=== PATIENT | male | born 1990 | race African-American/Black ===

== ENCOUNTER 2022-05-27 08:32 | Emergency (ER) | payer OTHER ==
[~2022-05-27] VITALS: Ht 167.6 cm; Wt 71.7 kg
[2022-05-27] MEDS ORDERED: NS 1,000 ML IV ONE (10:55)
[2022-05-27] MEDS ORDERED: ONDANSETRON 4MG 2ML VIAL IV ONE (11:00)
[2022-05-27 11:28] LABS: BASO % 0.6 % (0.0-1.0); EOS % 0.6 % (0.0-3.0); HEMATOCRIT 39.2 % (42.0-52.0); HEMOGLOBIN 13.1 g/dl (13.5-17.5); LYMPH # 2.1 10^3/uL (1.5-5.0); LYMPH % 38.2 % (24.0-44.0); MEAN CORPUSCULAR HEMOGLOBIN 29.2 pg (27.0-33.0); MEAN CORPUSCULAR HGB CONC 33.4 g/dl (32.0-36.5); MEAN CORPUSCULAR VOLUME 87.5 fl (80.0-96.0); MONO # 0.3 10^3/uL (0.0-0.8); MONO % 6.3 % (2.0-8.0); NEUTROPHILS % 54.1 % (36.0-66.0); PLATELET COUNT, AUTOMATED 260 10^3/uL (150-450); RED BLOOD COUNT 4.48 10^6/uL (4.30-6.10); WHITE BLOOD COUNT 5.4 10^3/uL (4.0-10.0)
[2022-05-27 12:08] LABS: ALT/SGPT 32 U/L (12-78); BILIRUBIN,DIRECT 0.1 MG/DL (0.0-0.2); BILIRUBIN,TOTAL 0.7 MG/DL (0.2-1.0); BLOOD UREA NITROGEN 15 MG/DL (7-18); CALCIUM LEVEL 9.4 MG/DL (8.5-10.1); CARBON DIOXIDE LEVEL 28 MEQ/L (21-32); CHLORIDE LEVEL 105 MEQ/L (98-107); CREATININE FOR GFR 1.36 MG/DL (0.70-1.30); GLOMERULAR FILTRATION RATE > 60.0 (>60); GLUCOSE, FASTING 92 MG/DL (70-100); LIPASE 149 U/L (73-393); POTASSIUM SERUM 4.6 MEQ/L (3.5-5.1); SODIUM LEVEL 138 MEQ/L (136-145); TOTAL PROTEIN 8.1 GM/DL (6.4-8.2)
[2022-05-27 13:45] VITALS: BP 112/70
== END 2022-05-27 13:45 | disposition home or self-care (01) ==
LOC: M ED 08:32
DX: R51.9 Headache, unspecified (principal); M79.12 Myalgia of auxiliary muscles, head and neck; R53.81 Other malaise
CPT/HCPCS: 80048; 80076; 83690; 85025; 87486; 87581; 87633; 87798; 96361; 96374; 99284; J2405

== ENCOUNTER 2022-08-03 07:41 | Emergency (ER) | payer OTHER ==
[~2022-08-03] VITALS: Ht 167.6 cm; Wt 77.0 kg
[2022-08-03 08:37] LABS: RSV AMPLIFICATION NEGATIVE (NEGATIVE)
[2022-08-03] MEDS ORDERED: NS 1,000 ML IV ONE (13:10)
[2022-08-03] MEDS ORDERED: ONDANSETRON 4MG 2ML VIAL IV ONE (13:10)
[2022-08-03 13:50] LABS: BASO % 0.2 % (0.0-1.0); HEMATOCRIT 41.9 % (42.0-52.0); HEMOGLOBIN 14.2 g/dl (13.5-17.5); LYMPH # 0.6 10^3/uL (1.5-5.0); LYMPH % 9.5 % (24.0-44.0); MEAN CORPUSCULAR HEMOGLOBIN 29.3 pg (27.0-33.0); MEAN CORPUSCULAR HGB CONC 33.9 g/dl (32.0-36.5); MEAN CORPUSCULAR VOLUME 86.6 fl (80.0-96.0); MONO # 0.1 10^3/uL (0.0-0.8); MONO % 2.2 % (2.0-8.0); NEUTROPHILS # 5.5 10^3/uL (1.5-8.5); NEUTROPHILS % 87.8 % (36.0-66.0); PLATELET COUNT, AUTOMATED 243 10^3/uL (150-450); RED BLOOD COUNT 4.84 10^6/uL (4.30-6.10); WHITE BLOOD COUNT 6.2 10^3/uL (4.0-10.0)
[2022-08-03 13:51] VITALS: BP 136/74
[2022-08-03 14:14] LABS: BLOOD UREA NITROGEN 15 MG/DL (9-23); CALCIUM LEVEL 9.9 MG/DL (8.5-10.1); CARBON DIOXIDE LEVEL 29 MMOL/L (20-31); CHLORIDE LEVEL 101 MMOL/L (98-107); CREATININE FOR GFR 1.35 MG/DL (0.70-1.30); GLOMERULAR FILTRATION RATE > 60.0 (>60); GLUCOSE, FASTING 90 MG/DL (60-100); POTASSIUM SERUM 4.6 MMOL/L (3.5-5.1); SODIUM LEVEL 137 MMOL/L (136-145)
[2022-08-03] MEDS ORDERED: ONDA4TAB6 PO (14:37)
== END 2022-08-03 15:13 | disposition home or self-care (01) ==
LOC: M ED 07:41
DX: E86.0 Dehydration (principal); B34.9 Viral infection, unspecified; Z98.52 Vasectomy status
CPT/HCPCS: 80048; 85025; 87631; 96361; 96374; 99284; J2405